=== PATIENT | male | born 1940 | race Caucasian/White ===

== ENCOUNTER 2017-12-26 07:41 | Outpatient (CLI) | payer OTHER, SELFPAY ==
[2017-12-26 08:42] LABS: CREATININE 1.19 mg/dL (0.70-1.30); Estimated GFR 59.44 (mL/min/1.73m2); Glucose 96 mg/dL (70-100); Potassium 4.5 mmol/L (3.5-5.1)
== END 2017-12-26 08:01 ==
PROVIDERS: PCP General Practice; Visit Provider General Practice
DX: I10 Essential (primary) hypertension (principal)
CPT/HCPCS: 36415; 82947; 82565; 84132

== ENCOUNTER 2018-12-28 10:38 | Outpatient (CLI) | payer OTHER, SELFPAY ==
[2018-12-28 12:27] LABS: CREATININE 1.27 mg/dL (0.70-1.30); Estimated GFR 54.99 (mL/min/1.73m2); Glucose 97 mg/dL (70-100); Potassium 5.4 mmol/L (3.5-5.1)
== END 2018-12-28 10:58 ==
PROVIDERS: PCP General Practice; Visit Provider General Practice
DX: I10 Essential (primary) hypertension (principal); Z13.1 Encounter for screening for diabetes mellitus
CPT/HCPCS: 36415; 82947; 82565; 84132

== ENCOUNTER 2019-03-04 10:31 | Outpatient (CLI) | payer OTHER, SELFPAY ==
--- NOTE | 2019-03-04 10:40 | DI.RAD_ITS ---
EXAM: XR SHOULDER RT COMPLETE 2+V INDICATION: R shoulder pain. COMPARISON: No exams were available for comparison TECHNIQUE: 2D digital imaging was performed. FINDINGS: There is mild spurring at the AC joint undersurface of the acromion. There is also mild spurring at the glenoid. The glenohumeral joint is well maintained. The humeral head is normally position. IMPRESSION: Mild degenerative changes.
--- NOTE | 2019-03-04 10:41 | DI.RAD_ITS ---
EXAM: XR CERVICAL SP KEMP TRAUMA 2-3V INDICATION: neck pain. COMPARISON: No exams were available for comparison TECHNIQUE: 2D digital imaging was performed. FINDINGS: There is marked narrowing as well as endplate osteophyte formation from C3-4 through C6. There are facet degenerative changes, greatest at C2-3 and C7-T1. There is some straightening of the normal ce rvical lordosis secondary to degenerative changes. The airway is unremarkable. IMPRESSION: Moderate to severe degenerative disc changes and facet joint degenerative changes.
== END 2019-03-04 10:51 ==
PROVIDERS: PCP General Practice; Referring Provider General Practice; Visit Provider Student in an Organized Health Care Education/Training Program
DX: M54.2 Cervicalgia (principal); M47.812 Spondylosis without myelopathy or radiculopathy, cervical region; M50.31 Other cervical disc degeneration, high cervical region; M25.511 Pain in right shoulder; M79.601 Pain in right arm; M19.011 Primary osteoarthritis, right shoulder; M75.81 Other shoulder lesions, right shoulder; I10 Essential (primary) hypertension
CPT/HCPCS: 20610; 99203; 72040; 73030; J1040

== ENCOUNTER 2019-04-10 12:47 | Outpatient (REF) | payer OTHER, SELFPAY ==
[2019-04-10 21:57] LABS: ALT 23 U/L (16-63); AST 15 U/L (15-37); Albumin 3.7 g/dL (3.4-5.0); Alkaline Phosphatase 101 U/L (46-116); BUN 26 mg/dL (7-18); Bilirubin, Total 0.3 mg/dL (0.2-1.0); CREATININE 1.27 mg/dL (0.70-1.30); Calcium 8.4 mg/dL (8.5-10.1); Chloride 105 mmol/L (98-107); Estimated GFR 54.99 (mL/min/1.73m2); Glucose 96 mg/dL (74-106); LDL CHOLESTEROL 106 mg/dL (<100); Potassium 4.4 mmol/L (3.5-5.1); Sodium 142 mmol/L (136-145); Total Protein 6.6 g/dL (6.4-8.2)
== END 2019-04-10 13:07 ==
LOC: NCHCN 12:47
PROVIDERS: PCP General Practice; Visit Provider Specialist/Technologist Athletic Trainer
DX: I10 Essential (primary) hypertension (principal); I25.10 Atherosclerotic heart disease of native coronary artery without angina pectoris
CPT/HCPCS: 80053; 83721

== ENCOUNTER 2019-12-19 02:45 | Outpatient (CLI) | payer OTHER, SELFPAY ==
--- NOTE | 2019-12-19 | DI.US_ITS ---
EXAM: US CAROTID CLINICAL HISTORY: CAD,I25.10. TECHNIQUE: Ultrasound carotids performed using grayscale, color-flow, and spectral Doppler imaging. COMPARISON: No exams were available for comparison FINDINGS: RIGHT CAROTID ARTERY: Plaque: Mild calcific plaque at the bulb. Velocity elevation: None. LEFT CAROTID ARTERY: Plaque: Mild calcific plaque at the bulb. Velocity elevation: None. VERTEBRAL ARTERIES: Antegrade flow. Measurements: R Bulb: 47.6cm/s PS / 13.5cm/s ED R CCA: 73.3cm/s PS / 16.7cm/s ED R ECA: 84.2cm/s PS / 11.6cm/s ED R ICA Prox: 61.1cm/s PS /16.7cm/s ED R ICA Mid: 70.7cm/s PS / 23.8cm/s ED R ICA Distal: 82.3cm/s PS /26.4cm/s ED R Vert: 30cm/s PS / 5.3cm/s ED R SVR: 1.12 R DVR: 1.58 L Bulb: 77.8cm/s PS /18.6cm/s ED L CCA: 81cm/s PS / 19.3cm/s ED L ECA: 93.8cm/s PS /14.8cm/s ED L ICA Prox:61.7cm/s PS / 18.6cm/s ED L ICA Mid: 73.9cm/sPS / 18cm/s ED L ICA Distal: 96.4cm/s PS / 28.3cm/s ED L Vert: 76.4cm/s PS / 19.7cm/s ED L SVR: 1.19 L DVR: 1.47 IMPRESSION: No evidence for hemodynamically significant carotid stenosis. Criteria for Carotid Stenosis: Normal: ICA PSV <125 cm/s no plaque or intimal thickening is visible. <50% stenosis: ICA PSV <125 cm/s and plaque or intimal thickening is visible. 50-69% stenosis: ICA PSV is 125-250 cm/s and plaque is visible. >70% stenosis to near occlusion: ICA PSV >250 cm/s with visible plaque and luminal narrowing. DATA REPOSITORY:
== END 2019-12-19 03:05 ==
PROVIDERS: PCP General Practice; Visit Provider Family Medicine
DX: I25.10 Atherosclerotic heart disease of native coronary artery without angina pectoris (principal)
CPT/HCPCS: 93880

== ENCOUNTER 2020-10-12 10:47 | Outpatient (REF) | payer MEDICARE, SELFPAY ==
[2020-10-13 11:29] LABS: COVID-19 RT-PCR UVMMC Result Negative (Negative)
== END 2020-10-12 10:48 | disposition home or self-care (01) ==
LOC: LBN 10:47
PROVIDERS: PCP General Practice; Visit Provider Nurse Practitioner Family
DX: Z20.822 Contact with and (suspected) exposure to COVID-19 (principal); J06.9 Acute upper respiratory infection, unspecified
CPT/HCPCS: U0003

== ENCOUNTER 2021-02-15 09:00 | Outpatient (REF) | payer MEDICARE, SELFPAY ==
[2021-02-15 15:45] LABS: ALT 28 U/L (16-63); AST 21 U/L (15-37); Albumin 3.8 g/dL (3.4-5.0); Alkaline Phosphatase 92 U/L (46-116); Anion Gap 7.3 mmol/L (3-11); BUN 24 mg/dL (7-18); Bilirubin, Total 0.6 mg/dL (0.2-1.0); CO2 27.7 mmol/L (21.0-32.0); CREATININE 1.2 mg/dL (0.70-1.30); Calcium 8.7 mg/dL (8.5-10.1); Calculated LDL 131 mg/dL (<100); Chloride 104 mmol/L (98-107); Cholesterol 203 mg/dL (<200); Glucose 93 mg/dL (74-106); HDL Cholesterol 59 mg/dL (40-60); Potassium 4.5 mmol/L (3.5-5.1); Sodium 139 mmol/L (136-145); Total Protein 6.8 g/dL (6.4-8.2); Triglyceride 67 mg/dL (<150)
== END 2021-02-15 09:01 | disposition home or self-care (01) ==
LOC: NCHCN 09:00
PROVIDERS: PCP General Practice; Visit Provider Family Medicine
DX: I10 Essential (primary) hypertension (principal); Z00.00 Encounter for general adult medical examination without abnormal findings
CPT/HCPCS: 80053; 80061

== ENCOUNTER → 2021-12-09 12:08 | Outpatient (CLI) | payer MEDICARE, SELFPAY ==
--- NOTE | 2021-12-09 | DI.US_ITS ---
Exam(s) US LOWER EXTREMITY VENOUS LT EXAM: US LOWER EXTREMITY VENOUS LT CLINICAL HISTORY: LEFT LEG PAIN M79.605, ? BLOOD CLOT. TECHNIQUE: Lower extremity venous ultrasound performed using grayscale, color-flow, and spectral Do ppler analysis. COMPARISON: No exams were available for comparison FINDINGS: The common femoral, femoral and popliteal veins demonstrate normal compressibility, augmentation, and color Doppler. The posterior tibial veins are patent. No saphenous vein thrombosis or other superfi cial venous thrombosis is seen. No hematoma or Jovel's cyst is seen. IMPRESSION: Negative lower extremity ultrasound. No evidence of DVT. DATA REPOSITORY:
--- NOTE | 2021-12-09 | DI.RAD_ITS ---
Exam(s) XR KNEE LT 3V AP,LAT,AMARILIS EXAM: XR KNEE LT 3V AP,LAT,AMARILIS CLINICAL HISTORY: LEFT KNEE PAIN M25.562. TECHNIQUE: 2D digital imaging was performed. Three views. COMPARISON: No exams were available for comparison FINDINGS: BONES: No acute fracture is present. No bony destructive lesion is seen. JOINTS: There is mild narrowing of the medial femoral tibial joint space. There is mild periarticula r spurring. The knee is normally aligned. No joint effusion is seen. Chondrocalcinosis is noted. SOFT TISSUE: Normal. IMPRESSION: Mild degenerative changes and chondrocalcinosis. No acute abnormality. DATA REPOSITORY: RADIATION DOSE DELIVERED:
--- NOTE | 2021-12-09 | DI.RAD_ITS ---
Exam(s) XR FEMUR LT EXAM: XR FEMUR LT CLINICAL HISTORY: LEFT LEG PAIN M79.605. TECHNIQUE: 2D digital imaging was performed. AP and lateral views views. COMPARISON: None. FINDINGS: BONES: No acute fracture is present. No bony destructive lesion is seen. JOINTS: No dislocation present. Mild degenerative changes at the hip and knee. Chondrocalcinosis is noted at the menisci. SOFT TISSUE: Normal. IMPRESSION: Mild degenerative changes. No acute abnormality. DATA REPOSITORY: RADIATION DOSE DELIVERED:
== END ==
PROVIDERS: PCP General Practice; Visit Provider Physician Assistant Medical
DX: M17.12 Unilateral primary osteoarthritis, left knee (principal); M11.262 Other chondrocalcinosis, left knee
CPT/HCPCS: 73552; 73562; 93971

== ENCOUNTER 2022-03-16 09:26 | Outpatient (REF) | payer MEDICARE, SELFPAY ==
[2022-03-16 14:45] LABS: ALT 21 U/L (16-63); AST 25 U/L (15-37); Albumin 3.9 g/dL (3.4-5.0); Alkaline Phosphatase 113 U/L (46-116); Anion Gap 5.5 mmol/L (3-11); BUN 22 mg/dL (7-18); Bilirubin, Total 0.6 mg/dL (0.2-1.0); CO2 28.5 mmol/L (21.0-32.0); CREATININE 1.2 mg/dL (0.70-1.30); Calculated LDL 112 mg/dL (<100); Chloride 105 mmol/L (98-107); Cholesterol 192 mg/dL (<200); Estimated GFR 61.13 (mL/min/1.73m2); Glucose 90 mg/dL (74-106); HDL Cholesterol 71 mg/dL (40-60); Potassium 4.9 mmol/L (3.5-5.1); Sodium 139 mmol/L (136-145); Total Protein 6.9 g/dL (6.4-8.2); Triglyceride 47 mg/dL (<150)
== END 2022-03-16 09:27 | disposition home or self-care (01) ==
LOC: NCHCN 09:26
PROVIDERS: PCP General Practice; Visit Provider Family Medicine
DX: I10 Essential (primary) hypertension (principal); I25.10 Atherosclerotic heart disease of native coronary artery without angina pectoris
CPT/HCPCS: 80053; 80061

== ENCOUNTER 2023-04-12 15:35 | Outpatient (REF) | payer MEDICARE, SELFPAY ==
[2023-04-12 15:10] LABS: ALT 23 U/L (16-63); AST 17 U/L (15-37); Albumin 3.7 g/dL (3.4-5.0); Alkaline Phosphatase 97 U/L (46-116); Anion Gap 7.4 mmol/L (3-11); BUN 20 mg/dL (7-18); Bilirubin, Total 0.4 mg/dL (0.2-1.0); CO2 28.6 mmol/L (21.0-32.0); CREATININE 1.2 mg/dL (0.70-1.30); Calcium 8.9 mg/dL (8.5-10.1); Calculated LDL 114 mg/dL (<100); Chloride 106 mmol/L (98-107); Cholesterol 187 mg/dL (<200); Estimated GFR 60.75 (mL/min/1.73m2); Glucose 96 mg/dL (74-106); HDL Cholesterol 60 mg/dL (40-60); Potassium 4.4 mmol/L (3.5-5.1); Sodium 142 mmol/L (136-145); Total Protein 6.9 g/dL (6.4-8.2); Triglyceride 67 mg/dL (<150)
[2023-04-12 15:31] LABS: Vitamin D 25 Total 42.7 ng/mL (30-100)
[2023-04-12 15:51] LABS: Uric Acid 5.3 mg/dL (3.5-7.2)
[2023-04-13 08:59] LABS: PSA, Diagnostic 40.4 ng/mL (<=6.5)
== END 2023-04-12 15:36 | disposition home or self-care (01) ==
LOC: NCHCN 15:35
PROVIDERS: PCP General Practice; Visit Provider Family Medicine
DX: I10 Essential (primary) hypertension (principal); M10.9 Gout, unspecified; I25.10 Atherosclerotic heart disease of native coronary artery without angina pectoris; R97.20 Elevated prostate specific antigen [PSA]; Z79.899 Other long term (current) drug therapy
CPT/HCPCS: 80053; 80061; 82306; 84153; 84550

== ENCOUNTER → 2024-01-04 14:55 | Outpatient (BNVA) | payer MEDICARE, SELFPAY | PROVIDERS: PCP Nurse Practitioner Family; Referring Provider Nurse Practitioner Family; Visit Provider Nurse Practitioner Adult Health | DX: G56.01 Carpal tunnel syndrome, right upper limb (principal) | CPT/HCPCS: 95908; 99203 ==

== ENCOUNTER → 2024-03-21 13:52 | Outpatient (BNVA) | payer MEDICARE, SELFPAY | PROVIDERS: PCP Family Medicine; Referring Provider Family Medicine; Visit Provider Student in an Organized Health Care Education/Training Program | DX: G56.01 Carpal tunnel syndrome, right upper limb (principal) | CPT/HCPCS: 99213 ==

== ENCOUNTER 2024-03-26 06:20 | Day surgery (SDC) | payer MEDICARE, SELFPAY ==
[2024-03-26 06:26] VITALS: BP 149/80; PULSE 60; RESP 16; TEMP 36.2; O2SAT 99
[2024-03-26] MEDS: Cephalexin 500 MG CAP 1000 MG PO (06:38)
--- NOTE | 2024-03-26 07:11 | PDOC.DSDIS_ITS ---
Date of service: 03/26/24 Discharge Plan Disposition Patient Disposition: Home Discharge Details Reason For Visit: Right Carpal Tunnel Syndrome Attending Provider: Hoang Brown Primary Care Provider: Jewels Segundo Home Meds and New Rx's Prescriptions: New acetaminophen 500 mg tablet 500 mg PO Q6H PRN PRN (Reason: pain) Qty: 40 3RF hydrocodone-acetaminophen 5-325 mg tablet 1 tab PO Q6H PRN (Reason: pain) Qty: 3 0RF ibuprofen 600 mg tablet 600 mg PO TID PRN (Reason: pain) Qty: 60 3RF Continued lovastatin 40 mg tablet 40 mg PO DAILY lisinopril 5 mg tablet 5 mg PO DAILY aspirin 325 mg tablet 325 mg PO DAILY folic acid 400 mcg tablet 0.4 mg PO DAILY multivitamin Tablet 1 tab PO DAILY Discharge Instructions Stand Alone Forms: Adeolaa Lavelle Tunnel Release Referrals: Hoang Brown MD [ [facility] STAFF PHYSICIAN] - Activity:: Elevate Remove Dressings/Wound Care:: 48 hours Shower/Bathe:: 48 hours Diet:: As Tolerated Discharge Orders Discharge Orders: Discharge Order (Routine); Ordered 03/26/24 Ordered By: Hoang Brown
[2024-03-26] MEDS: Lidocaine 1% Multi-Dose W/EPI 1/100,000 50 ML VIAL (07:34)
[2024-03-26] MEDS: Sodium Bicarbonate 50 MEQ/50 ML VIAL (07:36)
[2024-03-26 07:51] VITALS: BP 132/75; PULSE 64; RESP 18; TEMP 36.2; O2SAT 98
--- NOTE | 2024-03-26 09:03 | ROE_ITS ---
Operative Note Operative Note PRE-OP DIAGNOSIS: Right Carpal Tunnel Syndrome POST-OP DIAGNOSIS: same PROCEDURE: Right Endoscopic Carpal Tunnel Release SURGEON: Hoang Brown ANESTHESIA TYPE: Local By Surgeon Refer to Anesthesia Record ESTIMATED BLOOD LOSS: 0 PATHOLOGY: none sent TOURNIQUET TIME: 8 COMPLICATIONS: None Patient was transported to: same day Patient's condition: stable Indications: I have seen Mohsen in clinic for symptoms of carpal tunnel syndrome. The numbness, tingling, and pain limited function. Clinical exam findings with nerve conduction tests confirmed the diagnosis of carpal tunnel syndrome. Nonoperative measures such as bracing, time, activity modifications had been tried but disability and pain persisted. I discussed carpal tunnel release with the patient. I reviewed the risks of the procedure to include, but not limited to, bleeding, infection, pain, stiffness, incomplete release, damage to nerves or vessels, persistent numbness, recurrence. Despite these risks, the patient elected to proceed. Findings: There was tightened carpal tunnel. This was dilated and released successfully with the endoscopic with increased space within the tunnel. The antebrachial fascia was released proximally freeing the median nerve at the wrist. Procedure Description: Mohsen was greeted in the preoperative holding area where the correct side was identified and marked. The consent was reviewed with the patient and signed. The history and physical was updated. All questions were answered. He was taken back to the operating room. The patient was placed into the supine position on the operating room table with the right arm on an arm board. A nonsterile tourniquet was placed high onto the arm. All bony prominences were well padded. Prophylactic antibiotics in the form of Cefazolin were administered. The right arm was then prepped with Chloraprep and draped in a standard fashion with stockinette and extremity drape. A timeout to confirm correct identity, side and site, procedure, allergies, anesthesia, and medical concerns was performed. The surgical site was marked in the volar wrist creases in line with the radial border of the fourth ray. This area was anesthetized with approximately 6cc of 1% Lidocaine. The limb was then exsanguinated with an Esmarch. The skin was incised with a 15 blade, approximately 1cm. The skin only was cut and the deeper tissue was dissected bluntly with a tenotomy scissor, avoiding passing nerve and venous structures. The fascia was penetrated and opened bluntly. A two-prong skin hook was placed under this proximal fascial edge. A series of hamate finders were used to identify and dilate the carpal tunnel. Synovial elevator was used to free synovial attachments to the underside of the transverse carpal ligament. My thumb was kept in the palm to kandace the distal extent of the carpal tunnel and correctly position the hand. The Microaire endoscope was inserted without difficulty and without resistance. Excellent visualization showed horizontally running fibers of the transverse carpal ligame nt (TCL). The distal extent of the TCL was visualized and the end of the scope palpated with the thumb. The blade was elevated and withdrawn from distal to proximal. The TCL was split into two flaps. The endoscope was reinserted to confirm complete release and any remnant ligament was incised. The scope was withdrawn and the proximal aspect of the carpal tunnel was grossly inspected and appeared release with the median nerve visible. The antebrachial fascia at the level of the wrist was then freed from the overlying skin and then the underlying median nerve with blunt dissection. This was transected longitudinally for about 3cm proximal to the wrist incision. The wound was then irrigated with easy flow of irrigant distally and proximally. The incision was closed with a single 4-0 Nylon suture. The wound was dressed with Xeroform, Gauze, Kerlix and Jefe. The tourniquet was deflated with the initial dressing and held with some pressure. Blood flow returned easily to all digits with capillary refill less than 2 seconds. The patient tolerated the procedure well and was returned to the Same Day Surgery area in a stable condition suffering no known complication. Date of Procedure: 03/26/24
== END 2024-03-26 08:04 | disposition home or self-care (01) ==
PROVIDERS: PCP Family Medicine; Visit Provider Student in an Organized Health Care Education/Training Program
PROC: 01N54ZZ Release Median Nerve, Percutaneous Endoscopic Approach (ICD-10-PCS; CPT 29848; principal; 2024-03-26 07:30)
DX: G56.01 Carpal tunnel syndrome, right upper limb (principal)
CPT/HCPCS: 29848; J2004

== ENCOUNTER → 2024-04-04 14:21 | Outpatient (BNVA) | payer MEDICARE, SELFPAY | PROVIDERS: PCP Family Medicine; Referring Provider Family Medicine | DX: Z47.89 Encounter for other orthopedic aftercare (principal); R20.0 Anesthesia of skin | CPT/HCPCS: 99024 ==